=== PATIENT | male | born 2005 | race Hispanic/Latino ===

== ENCOUNTER 2025-01-11 11:05 | Emergency (ER) | payer MEDICAID ==
[~2025-01-11] VITALS: Ht 172.7 cm; Wt 122.5 kg
[2025-01-11] MEDS: HYDROcodone/APAP 5/325 1 TAB TABLET PO STA (12:05)
[2025-01-11 12:26] LABS: IMMATURE GRANULOCYTE ABSOLUTE 0.09 K/uL (0-1); NUCLEATED RED BLOOD CELLS 0.0 % (0.0-0.19); PLATELET COUNT (AUTO) 238 K/uL (130-400); RED BLOOD CELL COUNT(AUTO) 5.04 MIL/uL (4.50-6.20); RED CELL DISTRIBUTION WIDTH 11.9 % (11.0-15.5); WHITE BLOOD COUNT (AUTO) 14.2 K/uL (4.8-10.8)
[2025-01-11 12:34] LABS: CREATININE 1.0 mg/dL (0.5-1.3); GLOMERULAR FILTR. RATE CALC 110.0 mL/min (>90); GLUCOSE,RANDOM 109.0 mg/dL (70-105); SODIUM SERUM 135.0 mmol/L (136-145); UREA NITROGEN, BLOOD 10.0 mg/dL (7-18)
--- NOTE | 2025-01-11 13:26 | HMCIMG ---
EXAM: US examination, right axilla CLINICAL HISTORY: right , r/o abscess TECHNIQUE: Real-time ultrasound examination performed with image documentation. COMPARISON: None provided. FINDINGS: Heterogeneous hypoechoic area with adjacent inflammatory changes and measuring approximately 9 x 7 x 12 mm in the right axilla. Inflammatory lymph node in right axilla measuring approximately 7 x 4 x 8 mm IMPRESSION: 1. 9 x 7 x 12 mm heterogeneous hypoechoic area with adjacent inflammatory changes in right axilla, concerning for abscess. /[place]
[2025-01-11] MEDS: LIDOCAINE HCL 1% 20 ML VIAL INJ STA (14:26)
--- NOTE | 2025-01-11 14:49 | ERN ---
ED Note History of Present Illness Stated Complaint: ABSCESS Chief Complaint: Abscess Time Seen by MD: 11:09 Time Seen by Midlevel: 11:13 Dictation: 19 Year old male coming in with complaints of pain to the right axilla, onset two days ago. Patient states he went to another hospital when they gave him antibiotics two days ago. Denies any fevers, nausea or vomiting. Allergies: Coded Allergies: No Known Drug Allergies (Unverified Allergy, Unknown, 01/11/25) Past Medical History Past Medical History: No Pertinent History Additional Past Medical Hx: denies pmhx Surgical History: None Review of System Dictation Constitutional: Negative for fever,chills, and weight loss Eyes: Negative for injury, pain,redness, and discharge ENT: Negative for injury,pain or swelling Cardiovascular: Negative for chest pain, palpitations, and edema Respiratory: Negative for shortness of breath, cough, and wheezing, Abdomen/GI: Negative for abdominal pain, nausea, vomiting, diarrhea, and constipation Back: Negative for injury and pain : Negative for injury, bleeding and discharge MS/Extremity: Negative for injury and deformity Skin: Negative for rash, and discoloration, Neuro: Negative for headache, weakness, numbness, tingling, and seizure Psych: Negative for suicide ideation, homicidal ideation, and hallucinations Review of Systems: was completed Initial Vital Sign VS Vital Signs Date Time Temp Pulse Resp B/P (MAP) Pulse Ox O2 Delivery O2 Flow Rate FiO2 01/11/25 11:08 99.0 103 18 124/80 97 Room Air 0 01/11/25 11:12 21 Physical Exam Dictation General: awake, alert, NAD Head/Face: Normocephalic, atraumatic Eyes: PERRL, EOMI, vision at baseline ENT: oral cavity clear, TMs clear, no signs of infection Neck: Trachea midline, supple, no nuchal rigidity Cardiovascular: RRR, normal S1/S2, No MRGs, no JVD Respiratory: CTAB, no respiratory distress, No rales or wheezes Abdomen: Soft, non-tender, non-distended, normal bowel sounds, no guarding or rebound. Skin: Warm, dry, normal turgor, no rash, swelling, induration noted to the right axilla. Normal drainage MS/Extremity: Pulses equal, no cyanosis, neurovascular intact, FROM Neuro: COAx4, GCS 15, strength 5/5, CN 2-12 intact, normal cerebellar exam, normal gait, Psych: Normal behavior, mood, and affect normal Results (Laboratory/Radiology) Laboratory/Radiology Laboratory Tests Test 01/11/25 12:03 White Blood Count 14.2 K/uL (4.8-10.8) H Red Blood Count 5.04 MIL/uL (4.50-6.20) Hemoglobin 14.9 g/dL (14.0-18.0) Hematocrit 43.4 % (42-54) Mean Corpuscular Volume 86.1 fL (80-100) Mean Corpuscular Hemoglobin 29.6 pg (27.0-33.0) Mean Corpuscular Hemoglobin Concent 34.3 g/dL (32.0-36.0) Red Cell Distribution Width 11.9 % (11.0-15.5) Platelet Count 238 K/uL (130-400) Mean Platelet Volume 10.9 fL (7.5-10.5) H Immature Granulocyte % (Auto) 0.6 % (0-1) Neutrophils (%) (Auto) 74.6 % (40.0-77.0) Lymphocytes (%) (Auto) 15.5 % (21.0-51.0) L Monocytes (%) (Auto) 6.0 % (3.0-13.0) Eosinophils (%) (Auto) 2.5 % (0.0-8.0) Basophils (%) (Auto) 0.8 % (0.0-5.0) Neutrophils # (Auto) 10.6 K/uL (1.8-7.7) H Lymphocytes # (Auto) 2.2 K/uL (1.0-4.8) Monocytes # (Auto) 0.9 K/uL (0.1-1.0) Eosinophils # (Auto) 0.36 K/uL (0.00-0.70) Basophils # (Auto) 0.11 K/uL (0.00-0.20) Absolute Immature Granulocyte (auto 0.09 K/uL (0-1) Nucleated Red Blood Cells 0.0 % (0.0-0.19) Sodium Level 135 mmol/L (136-145) L Potassium Level 4.1 mmol/L (3.5-5.1) Chloride Level 102 mmol/L (101-111) Carbon Dioxide Level 29 mmol/L (21-32) Blood Urea Nitrogen 10 mg/dL (7-18) Creatinine 1.0 mg/dL (0.5-1.3) Glomerular Filtration Rate Calc 110 mL/min (>90) Random Glucose 109 mg/dL (70-105) H Total Calcium 8.9 mg/dL (8.5-10.1) Labs Reviewed?: Yes Ultrasound Comment: [facility] [address] [place] [address] IMAGING REPORT Signed PATIENT: ABELARDO VAZQUEZ MR#: [id number] : 2005 SEX: M AGE: 19 LOCATION: [facility] ORDER 35 STATUS: REG ER REPORT#: [id number] SERVICE 34 REASON: right , r/o abscess ORDERING PHYSICIAN: ENEIDA TINEO NP PROCEDURE: SOFT AXILL - US SOFT TISSUE AXILLA EXAM: US examination, right axilla CLINICAL HISTORY: right , r/o abscess TECHNIQUE: Real-time ultrasound examination performed with image documentation. COMPARISON: None provided. FINDINGS: Heterogeneous hypoechoic area with adjacent inflammatory changes and measuring approximately 9 x 7 x 12 mm in the right axilla. Inflammatory lymph node in right axilla measuring approximately 7 x 4 x 8 mm IMPRESSION: 1. 9 x 7 x 12 mm heterogeneous hypoechoic area with adjacent inflammatory changes in right axilla, concerning for abscess. /[place] DICTATED BY: LUZ MALAVE Jr., MD DATE: 01/11/251424 ELECTRONICALLY SIGNED BY: LUZ MALAVE Jr., MD DATE: 01/11/251424 ED Course ED Course Orders Procedure Category Date Status Time Cbc With Differential LAB 01/11/25 Complete 11:35 Basic Metabolic Panel LAB 01/11/25 Complete 11:35 Us Soft Tissue Axilla US 01/11/25 Resulted 11:35 Hydrocodone/Apap PHA 01/11/25 Complete 5/325 ([place] 5/325mg) 12:02 Lidocaine Hcl 1% 20ml PHA 01/11/25 Complete Vial (Lidocaine Hc 14:13 Current Medications Medications (Trade) Dose Ordered Sig/Jennifer Route PRN Reason Start Time Stop Time Status Last Admin Dose Admin Acetaminophen/ Hydrocodone Bitart (NORco 5/325MG) 1 tab ONCE STAT PO 01/11/25 12:02 01/11/25 12:03 DC 01/11/25 12:05 Lidocaine HCl (Lidocaine HCl 1% 20ml Vial) ONCE STAT INJ 01/11/25 14:13 01/11/25 14:16 DC 01/11/25 14:26 Vital Signs Date Time Temp Pulse Resp B/P (MAP) Pulse Ox O2 Delivery O2 Flow Rate FiO2 01/11/25 11:12 99.0 103 18 124/80 97 Room Air* 0 21 01/11/25 11:08 99.0 103 18 124/80 97 Room Air 0 Medical Decision Making MDM MDM: 19 Year old male coming in with complaints of pain to the right axilla, onset two days ago. Patient states he went to another hospital when they gave him antibiotics two days ago. Denies any fevers, nausea or vomiting. Ultrasound shows evidence of an abscess. See I and D note for procedure. Discussed wound care and abscess care with the patient. Discussed to use warm compresses and help with the drainage and continue taking the Bactrim he has been taking. Differential diagnosis: Abscess, folliculitis, lymphadenopathy Rationale: Tests considered and ordered secondary to shared decision making include: Previous outside records reviewed: Old ER visits. Risk of complication and/or morbidity or mortality of patient management: None Medications-Per medication reconciliation Need for hospitalization: Patient does not meet criteria for hospitalization. Need for emergency major/minor surgery: No There are no social concerns with this patient. Prescription drug management Prescriptions will include symptomatic care Patient's prior external medical records from other ER visits were reviewed by me as indicated. Prior testing and results from previous visits were reviewed. Prior tests were taken into account with medical decision making and resource utilization, independent historian/historians were used to obtain complete medical history. I independently interpreted the test that were performed, results were reviewed by me and considered findings on radiology if ordered. Medical management and examination interpretation discussions were had by me with other qualified healthcare professionals as indicated for the patient's care. DX & DISP Disposition: Discharge Departure Impression: Primary Impression: Axillary abscess Condition: Stable Additional Instructions: Keep area clean and dry. Use warm compresses to help drain the abscess. Continue taking your Bactrim until you are done with the days. Return to the hospital if you develop any fevers, nausea and vomiting, worsening pain, redness or foul odor. Referrals: SELF,REFERRAL (PCP) Time of Disposition: 14:48 I have reviewed the case, and I agree with, Diagnosis and Plan ENEIDA TINEO NP Jan 11, 2025 14:49
[2025-01-11 14:58] VITALS: BP 122/74; PULSE 91; RESP 18; TEMP 99; O2SAT 97
== END 2025-01-11 14:59 | disposition home or self-care (01) ==
LOC: EDH 11:05
DX: L02.419 Cutaneous abscess of limb, unspecified (principal)
CPT/HCPCS: 10060; 36415; 76882; 80048; 85025; 99284